=== PATIENT | female | born 1985 | race African-American/Black ===

== ENCOUNTER 2025-06-14 17:04 | Emergency (ER) | payer OTHER, BC ==
[~2025-06-14] VITALS: Ht 157.5 cm; Wt 77.0 kg
[2025-06-14 17:14] VITALS: TEMP 37; O2SAT 99
[2025-06-14] MEDS: LIDOCAINE HCL 1% 20ML VIAL INFIL ONE (17:45)
[2025-06-14] MEDS ORDERED: TETANUS, DIPHTHERIA, PERTUSSIS VAC/PF 0.5ML (>10YR OLD) IM ONE (17:45)
[2025-06-14] MEDS: BACITRACIN ZINC OINT UDPKT TOP ONE (17:45)
[2025-06-14] MEDS ORDERED: ACETAMINOPHEN 500MG TABLET PO ONE (17:45)
[2025-06-14] MEDS: KETOROLAC 30MG/ML VIAL IM ONE (18:28)
[2025-06-14] MEDS ORDERED: BO1 TP (19:00)
[2025-06-14] MEDS ORDERED: NAPR-681 MT (19:00)
[2025-06-14 19:24] VITALS: BP 202/127; PULSE 66; RESP 16; O2SAT 100
== END 2025-06-14 19:32 | disposition home or self-care (01) ==
LOC: ER 17:04
DX: S61.215A Laceration without foreign body of left ring finger without damage to nail, initial encounter (principal); I10 Essential (primary) hypertension; Z79.1 Long term (current) use of non-steroidal anti-inflammatories (NSAID); X58.XXXA Exposure to other specified factors, initial encounter; Y93.89 Activity, other specified; Y92.89 Other specified places as the place of occurrence of the external cause; Y99.8 Other external cause status
CPT/HCPCS: 81025; 12001; 96372; 99283; J1885; J2003; Z7610 ×4; 90715